=== PATIENT | male | born 1995 | race Caucasian/White ===

== ENCOUNTER 2020-09-07 01:00 | Emergency (ER) | payer SELFPAY ==
[~2020-09-07] VITALS: Ht 175.3 cm; Wt 115.2 kg
[2020-09-07 01:02] VITALS: Ht 175.3 cm; Wt 115.2 kg
[2020-09-07 03:49] VITALS: BP 140/92
== END 2020-09-07 03:49 | disposition home or self-care (01) ==
LOC: ED 01:00
DX: F43.9 Reaction to severe stress, unspecified (principal); R03.0 Elevated blood-pressure reading, without diagnosis of hypertension
CPT/HCPCS: J2060